=== PATIENT | female | born 1995 | race Two or more races ===

== ENCOUNTER 2024-07-30 21:14 | Emergency (ER) | payer MEDICAID ==
[2024-07-30] MEDS ORDERED: HYDROcodone/Acetaminophen 10/325 mg Tablet ONE (21:37)
== END 2024-07-30 21:42 | disposition home or self-care (01) ==
LOC: CSHERS 21:14
DX: K04.7 Periapical abscess without sinus (principal); F90.9 Attention-deficit hyperactivity disorder, unspecified type
CPT/HCPCS: 99282